=== PATIENT | female | born 2005 | race Caucasian/White ===

== ENCOUNTER 2023-08-07 06:04 | Emergency (ER) | payer OTHER, SELFPAY ==
[2023-08-07] MEDS ORDERED: ONDANSETRON 4 MG/2 ML VIAL ONE (06:33)
[2023-08-07] MEDS ORDERED: NA CHLORIDE 0.9% 1,000 ML ONE (06:34)
[2023-08-07] MEDS ORDERED: MORPHINE 4 MG/ML SYR ONE (06:45)
[2023-08-07] MEDS ORDERED: CEFTRIAXONE 1000 MG/VIAL ONE (06:45)
[2023-08-07 07:10] LABS: Absolute Eosinophils 0.4 K/uL (0-0.5); Absolute Lymphocytes (CBC) 2.7 K/uL (0.7-4.9); Absolute Monocytes 0.6 K/uL (0.1-1.3); Absolute Neutrophil 3.5 K/uL (1.8-8.0); Basophils % 0.6 % (0-1.3); Eosinophils % 5.2 % (0-4.4); Hematocrit 38.6 % (36.0-45.0); Hemoglobin 13.6 g/dL (12.0-15.0); Lymphocytes % 37.4 % (15.3-44.8); MCH 31.2 pg (27.0-35.0); MCHC 35.3 g/dL (32.0-36.0); MCV 88.5 fL (80-100); MPV 8.6 fL (7.6-11.3); Monocytes % 8.2 % (3.3-12.3); Neutrophils % 48.6 % (41.7-73.7); Nucleated Red Blood Cells % 0.1 % (0-0); Platelets 208 thou/uL (152-406); RBC Red Blood Cell Count 4.36 M/uL (3.86-4.86); Red Cell Distribution Width 12.6 % (12.1-15.2)
[2023-08-07 07:14] LABS: Specific Gravity 1.021 (1.005-1.030)
[2023-08-07 07:16] LABS: Specific Gravity 1.021 (1.005-1.030); Sqamous Epithelial <5 /HPF (None Seen); Urine Bacteria >50 /HPF (<20); Urine Bilirubin NEGATIVE (Negative); Urine Blood 3+ (Negative); Urine Clarity Extremely Turbid (Clear); Urine Color Light-Orange (Yellow); Urine Culture Reflex Order REFLEXED; Urine Glucose NEGATIVE (Negative); Urine Ketones TRACE (Negative); Urine Microscopic Reflex YN ORDER UMIC; Urine Mucus Slight /HPF (None Seen); Urine Nitrite 1+ (Negative); Urine Protein 3+ (Negative); Urine RBC >50 /HPF (None Seen); Urine Urobilinogen Normal (Normal); Urine WBC >50 /HPF (<5); Urine pH 6.5 (5.0-7.0)
[2023-08-07 08:11] LABS: Albumin/Globulin Ratio 0.9 (1.1-1.8); Anion Gap 9.6 mEq/L (5.0-15.0); Bilirubin Total 0.5 mg/dL (0.2-1.0); Globulin 3.4 g/dL (2.3-3.5); Potassium 3.6 mEq/L (3.5-5.1); Protein, Total 6.4 g/dL (6.4-8.2)
[2023-08-07] MEDS ORDERED: MORPHINE 2 MG/ML SYR ONE (08:26)
--- NOTE | 2023-08-07 08:36 | RAD REPORT ---
EXAM DESCRIPTION: CTAbdomen Pelvis W Contrast - 08/07/2023 8:14 am CLINICAL HISTORY: ABD PAIN COMPARISON: No comparisons TECHNIQUE: CT of the abdomen and pelvis was performed. All CT scans are performed using dose optimization technique as appropriate and may include automated exposure control or mA/KV adjustment according to patient size. FINDINGS: Lower chest: No acute abnormality. Liver: No acute abnormality or suspicious lesions. Biliary: No biliary ductal dilatation. Stomach: No significant focal abnormality. Duodenum: No significant focal abnormality. Pancreas: No significant abnormality. Spleen: No significant abnormality. Adrenal: No suspicious lesions. Kidney/ureter: No hydronephrosis. No renal calculi. Retroperitoneum: No retroperitoneal adenopathy. Vascular: No aneurysm. Bowel: No significant focal abnormality. Normal appendix. Peritoneum: No ascites or free air. Bladder: Mild circumferential bladder wall thickening. Reproductive: No adnexal masses. IUD. Bones: No acute fracture. Other: n/a IMPRESSION: No acute intra-abdominal or pelvic finding. Mild bladder wall thickening could indicate cystitis. Normal appendix.
--- NOTE | 2023-08-07 08:56 | EDPHYS ---
Physician Documentation [facility] Name: Radha Lea Age: 17 yrs Sex: Female : 2005 Arrival Date: 08/07/2023 Time: 06:04 Bed 20 Private MD: ED Physician Eliu Aragon HPI: 08/06 06:34 This 17 yrs old Female presents to ER via Ambulatory with complaints of danette Abdominal Pain. 06:34 The patient presents with abdominal pain right lower quadrant. Onset: The danette symptoms/episode began/occurred 1 day(s) ago. The patient complains of pain in the right mid back. The pain radiates to the right mid back and right low back. Onset: The symptoms/episode began/occurred 3 day(s) ago. Modifying factors: The symptoms are alleviated by nothing. the symptoms are aggravated by nothing. The patient presents with pain that is acute, with no known mechanism of injury. Associated signs and symptoms: The patient has no apparent associated signs or symptoms. 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 Last tetanus immunization: < 5 years ago Flu vaccine is not up to date. - Social history:: Smoking status: Reported history of juuling and/or vaping. Patient uses alcohol, occasionally. Patient/guardian denies using alcohol. - Family history:: not pertinent. ROS: 06:34 Constitutional: Negative for fever, chills, and weight loss, Eyes: Negative for injury, danette pain, redness, and discharge, ENT: Negative for injury, pain, and discharge, Neck: Negative for injury, pain, and swelling, Cardiovascular: Negative for chest pain, palpitations, and edema, Respiratory: Negative for shortness of breath, cough, wheezing, and pleuritic chest pain, : Negative for injury, bleeding, discharge, and swelling, MS/Extremity: Negative for injury and deformity, Skin: Negative for injury, rash, and discoloration, Neuro: Negative for headache, weakness, numbness, tingling, and seizure, Psych: Negative for depression, anxiety, suicide ideation, homicidal ideation, and hallucinations, Allergy/Immunology: Negative for hives, rash, and allergies, Endocrine: Negative for neck swelling, polydipsia, polyuria, polyphagia, and marked weight changes, Hematologic/Lymphatic: Negative for swollen nodes, abnormal bleeding, and unusual bruising, 06:34 Abdomen/GI: Positive for abdominal pain, of the posterior aspect of right lateral abdomen, anterior aspect of right lateral abdomen and right lower quadrant, Exam: 06:34 Constitutional: This is a well developed, well nourished patient who is awake, alert, danette and in no acute distress. Head/Face: Normocephalic, atraumatic. Eyes: Pupils equal round and reactive to light, extra-ocular motions intact. Lids and lashes normal. Conjunctiva and sclera are non-icteric and not injected. Cornea within normal limits. Periorbital areas with no swelling, redness, or edema. ENT: Nares patent. No nasal discharge, no septal abnormalities noted. Tympanic membranes are normal and external auditory canals are clear. Oropharynx with no redness, swelling, or masses, exudates, or evidence of obstruction, uvula midline. Mucous membranes moist. Neck: Trachea midline, no thyromegaly or masses palpated, and no cervical lymphadenopathy. Supple, full range of motion without nuchal rigidity, or vertebral point tenderness. No Meningismus. Chest/axilla: Normal chest wall appearance and motion. Nontender with no deformity. No lesions are appreciated. Cardiovascular: Regular rate and rhythm with a normal S1 and S2. No gallops, murmurs, or rubs. Normal PMI, no JVD. No pulse deficits. Respiratory: Lungs have equal breath sounds bilaterally, clear to auscultation and percussion. No rales, rhonchi or wheezes noted. No increased work of breathing, no retractions or nasal flaring. Back: No spinal tenderness. No costovertebral tenderness. Full range of motion. Skin: Warm, dry with normal turgor. Normal color with no rashes, no lesions, and no evidence of cellulitis. MS/ Extremity: Pulses equal, no cyanosis. Neurovascular intact. Full, normal range of motion. Neuro: Awake and alert, GCS 15, oriented to person, place, time, and situation. Cranial nerves II-XII grossly intact. Motor strength 5/5 in all extremities. Sensory grossly intact. Cerebellar exam normal. Normal gait. Psych: Awake, alert, with orientation to person, place and time. Behavior, mood, and affect are within normal limits. 06:34 Abdomen/GI: Inspection: abdomen appears normal, Bowel sounds: normal, Palpation: mild abdominal tenderness, in the posterior aspect of right lateral abdomen, anterior aspect of right lateral abdomen and right lower quadrant, Vital Signs: 06:26 BP 127 / 94; Pulse 86; Resp 16; Temp 97.8; Pulse Ox 99% on R/A; Weight 46.72 kg; Height pf1 5 ft. 4 in. ; Pain 8/10; 07:12 BP 109 / 60; Pulse 70; Resp 16 S; Pulse Ox 100% on R/A; kc6 08:32 BP 110 / 70; Pulse 90; Resp 16 S; Pulse Ox 97% on R/A; Pain 6/10; kc6 06:26 Body Mass Index 17.68 (46.72 kg, 162.56 cm) - Percentile 4.2 % pf1 06:26 Pain Scale: Adult pf1 08:32 Pain Scale: Adult kc6 MDM: 06:10 Patient medically screened. danette 06:38 Differential diagnosis: nephrolithiasis, pyelonephritis, UTI, Cholelithiasis danette Cholelithiasis, gastritis, Menorrhagia, non-specific abd pain, Ovarian Torsion. Data reviewed: vital signs, nurses notes, lab test result(s), radiologic studies, CT scan. Consideration of Admission/Observation Escalation of care including admission/observation considered. I considered the following discharge prescriptions or medication management in the emergency department Medications were administered in the Emergency Department. See MAR. Independent interpretation of the following test(s) in the Emergency Department CT Scan: My interpretation is ct abd pelvis ro appy, stone , uti , pyelo. 07:33 ED course: Patient seen and examined by me which was signed out by Dr. Frye on the sp3 assistant casino shift manager. Patient is a 17-year-old female with right lower quadrant and right flank pain. Differential diagnosis includes UTI versus kidney stone versus constipation versus functional abdominal pain and to a much lower likelihood appendicitis or biliary pathology. Workup is pending including labs, UA and CT scan of the abdomen pelvis. Disposition pending workup and patient course. Pain is controlled and she is resting comfortably.. 08:55 ED course: CT demonstrates cystitis and UA demonstrates significant infection. We will sp3 diagnose pyelonephritis and send patient home on appropriate medications. She received Rocephin 1 g IV in the ED already. Follow-up with PCP as needed.. 08/06 06:12 Order name: CBC with Diff; Complete Time: 07:[address] [facility] 08/06 06:12 Order name: CMP; Complete Time: 08:[address] [facility] 08/06 06:12 Order name: Lipase; Complete Time: 08:[address] [facility] 08/06 06:12 Order name: Test, Urine; Complete Time: 07:[address] [facility] 08/06 06:12 Order name: Urinalysis w/ reflexes; Complete Time: 08:[address] [facility] 08/06 06:34 Order name: Urine Culture [facility] 08/06 06:34 Order name: CT Abd/Pelvis - IV Contrast Only; Complete Time: 08:[address] [facility] 08/06 06:12 Order name: IV Saline Lock; Complete Time: 06:[address] [facility] 08/06 06:12 Order name: Labs collected and sent; Complete Time: 06:[address] [facility] 08/06 07:23 Order name: Labs - recollect needed: recollect chemistries / hemolyzed per Jeannie; eb Complete Time: 07:37 Administered Medications: 06:40 Drug: NS 0.9% IV 1000 ml IV at 1 bolus Per protocol; 1000 mL bolus Route: IV; Rate: 1 pf1 bolus; Site: left antecubital; 06:59 Follow up: Response: No adverse reaction; Marked relief of symptoms pf1 06:40 Drug: Ondansetron IVP 4 mg IVP once; over 2 minutes Route: IVP; Site: left antecubital; pf1 06:58 Follow up: Response: No adverse reaction; Marked relief of symptoms pf1 06:50 Drug: morphine IVP or IV 2 mg IVP once over 4 mins Route: IVP; Infused Over: 4 mins; pf1 Site: left antecubital; 06:59 Follow up: Response: No adverse reaction; Marked relief of symptoms; Pain is decreased; pf1 RASS: Alert and Calm (0) 06:50 Drug: Rocephin IV 1 grams IV at per protocol once; Given slow IV push per pharmacy pf1 instructions Route: IV; Rate: per protocol; Site: left antecubital; 06:59 Follow up: Response: No adverse reaction; Marked relief of symptoms; IV Status: pf1 Completed infusion; IV Intake: 10ml 08:29 Drug: morphine IVP or IV 2 mg IVP once over 4 mins Route: IVP; Infused Over: 4 mins; kc6 Site: left antecubital; 09:09 Drug: Ketorolac IVP 30 mg IVP once Route: IVP; Site: left antecubital; kc6 Disposition Summary: 08/07/23 08:56 Discharge Ordered Notes: Location: Home sp3 Condition: Stable sp3 Diagnosis - Pyelonephritis acute sp3 Followup: sp3 - With: Private Physician - When: Upon discharge from the Emergency Department - Reason: Continuance of care Discharge Instructions: - Discharge Summary Sheet sp3 - Pyelonephritis, Adult sp3 Forms: - Work release form eb - Medication Reconciliation Form sp3 - Thank You Letter sp3 - Antibiotic Education sp3 - Prescription Opioid Use sp3 - Patient Portal Instructions sp3 - Leadership Thank You Letter sp3 Prescriptions: - Cipro 500 mg Oral Tablet - take 1 tablet ORAL route every 12 hours for 10 days; 20 tablet; Refills: 0, sp3 Product Selection Permitted Signatures: Dispatcher [employer] EDJoe Jean-Baptiste MD MD cha Botello, Elizabeth eb Patel, Setul, MD MD sp3 Lauren Brand RN RN kc6 Jackie Dotson RN RN pf1 Corrections: (The following items were deleted from the chart) 06:13 06:13 CBC+H.LAB.BRZ ordered. EDMS EDMS 06:13 06:13 COMPREHENSIVE METABOLIC PANEL+C.LAB.BRZ ordered. EDMS EDMS 06:13 06:13 LIPASE+C.LAB.BRZ ordered. EDMS EDMS 06:13 06:13 Test, Urine+UC.LAB.BRZ ordered. EDMS EDMS 06:13 06:13 Urinalysis+U.LAB.BRZ ordered. EDMS EDMS 06:13 06:13 Abdomen Pelvis W Con+CT.RAD.BRZ ordered. EDMS EDMS 06:34 06:34 Urine Culture+BA.LAB.BRZ ordered. EDMS EDMS 07:34 07:33 ED course: Patient seen and examined by me which was signed out by Dr. Frye sp3 on the assistant casino shift manager. Patient is a 17-year-old female with right lower quadrant and right flank pain. Differential diagnosis includes UTI versus kidney stone versus constipation versus functional abdominal pain and to a much lower likelihood appendicitis or biliary pathology. Workup is pending including labs, UA and CT scan of the abdomen pelvis. Disposition pending workup and patient course.. sp3
--- NOTE | 2023-08-07 08:56 | ER ---
Nurse's Notes [facility] Name: Radha Lea Age: 17 yrs Sex: Female : 2005 Arrival Date: 08/07/2023 Time: 06:04 Bed 20 Private MD: Diagnosis: Pyelonephritis acute Presentation: 08/06 06:26 Chief complaint: Patient states: RLQ pain of 8,onset yesterday with burning with pf1 urination, frequency, and urgency,onset 5 days ago. Coronavirus screen: Vaccine status: Patient reports being unvaccinated. Client denies travel out of the [place] in the last 14 days. At this time, the client does not indicate any symptoms associated with coronavirus-19. Ebola Screen: Patient negative for fever greater than or equal to 101.5 degrees Fahrenheit, and additional compatible Ebola Virus Disease symptoms. Initial Sepsis Screen: Does the patient meet any 2 criteria? No. Patient's initial sepsis screen is negative. Does the patient have a suspected source of infection? No. Patient's initial sepsis screen is negative. Risk Assessment: Do you want to hurt yourself or someone else? Patient reports no desire to harm self or others. Onset of symptoms was August 02, 2023. 06:26 Method Of Arrival: Ambulatory pf1 06:26 Acuity: ROZINA 3 pf1 Triage Assessment: 06:29 General: Appears in no apparent distress. comfortable, well groomed, well developed, pf1 Behavior is calm, cooperative, appropriate for age, quiet. Pain: Complains of pain in abdomen. GI: Abdomen is flat, non-distended, Bowel sounds Reports lower abdominal pain. : Reports burning with urination, urgency, urinary frequency. 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 Last tetanus immunization: < 5 years ago Flu vaccine is not up to date. - Social history:: Smoking status: Reported history of juuling and/or vaping. Patient uses alcohol, occasionally. Patient/guardian denies using alcohol. - Family history:: not pertinent. Screenin:[facility] ED Fall Risk Assessment (Adult) History of falling in the last 3 months, pf1 including since admission No falls in past 3 months (0 pts) Confusion or Disorientation No (0 pts) Intoxicated or Sedated No (0 pts) Impaired Gait No (0 pts) Mobility Assist Device Used No (0 pt) Altered Elimination No (0 pt) Score/Fall Risk Level 0 - 2 = Low Risk Oriented to surroundings, Maintained a safe environment, Educated pt \T\ family on fall prevention, incl call for assistance when getting out of bed, Assessed \T\ reinforced patient's understanding of fall precautions, Provided non-skid footwear, Hourly rounding (assess needs \T\ fall precautionary measures) done, Used ambulatory aids as needed (educated on \T\ assisted with), Used gait belt as appropriate. Abuse screen: Denies threats or abuse. Nutritional screening: No deficits noted. Tuberculosis screening: No symptoms or risk factors identified. Assessment: 06:30 General: Appears in no apparent distress. comfortable, well groomed, well developed, pf1 Behavior is calm, cooperative, appropriate for age, quiet. Pain: Complains of pain in abdomen Pain currently is 8 out of 10 on a pain scale. Pain began 1 day ago. Neuro: No deficits noted. Level of Consciousness is awake, alert, obeys commands, Oriented to person, place, time, situation. Cardiovascular: No deficits noted. Capillary refill < 3 seconds Patient's skin is warm and dry. Respiratory: Airway is patent Respiratory effort is even, unlabored, Respiratory pattern is regular, symmetrical, Breath sounds are clear bilaterally. GI: Abdomen is flat, non-distended, Bowel sounds present X 4 quads. Abd is soft and non tender X 4 quads. Reports lower abdominal pain. : Reports burning with urination, urgency, since 5 days urinary frequency. EENT: No deficits noted. No signs and/or symptoms were reported regarding the EENT system. Derm: No deficits noted. No signs and/or symptoms reported regarding the dermatologic system. 07:30 Reassessment: Patient appears in no apparent distress at this time. No changes from kc6 previously documented assessment. Patient and/or family updated on plan of care and expected duration. Pain level reassessed. Patient is alert, oriented x 3, equal unlabored respirations, skin warm/dry/pink. Patient denies pain at this time. Patient states feeling better. Patient states symptoms have improved. 08:30 Reassessment: Patient appears in no apparent distress at this time. No changes from kc6 previously documented assessment. Patient and/or family updated on plan of care and expected duration. Pain level reassessed. Patient is alert, oriented x 3, equal unlabored respirations, skin warm/dry/pink. pt reports increased pain 6/10. Vital Signs: 06:26 BP 127 / 94; Pulse 86; Resp 16; Temp 97.8; Pulse Ox 99% on R/A; Weight 46.72 kg; Height pf1 5 ft. 4 in. ; Pain 8/10; 07:12 BP 109 / 60; Pulse 70; Resp 16 S; Pulse Ox 100% on R/A; kc6 08:32 BP 110 / 70; Pulse 90; Resp 16 S; Pulse Ox 97% on R/A; Pain 6/10; kc6 06:26 Body Mass Index 17.68 (46.72 kg, 162.56 cm) - Percentile 4.2 % pf1 06:26 Pain Scale: Adult pf1 08:32 Pain Scale: Adult kc6 ED Course: 06:09 Patient arrived in ED. gm2 06:10 Joe Frye MD is Attending Physician. [facility] 06:28 Triage completed. pf1 06:29 Arm band placed on right wrist. pf1 06:30 Patient has correct armband on for positive identification. Placed in gown. Bed in low pf1 position. Call light in reach. 06:30 Door closed. Noise minimized. Moved to private room. Warm blanket given. pf1 06:35 No provider procedures requiring assistance completed. Inserted saline lock: 20 gauge pf1 in left antecubital area, using aseptic technique. Blood collected. 06:45 Initial lab(s) drawn, by me, sent to lab. Urine collected: clean catch specimen, pf1 cloudy, Amount Voided: 100mL. 07:00 Warm blanket given. pf1 07:00 Report received from JORDEN Strange. kc6 07:04 Report given to JORDEN Ocampo. pf1 07:06 Attending Physician role handed off by Joe Frye MD sp3 07:06 Eliu Aragon MD is Attending Physician. sp3 08:15 CT Abd/Pelvis - IV Contrast Only In Process Unspecified. EDMS 08:16 Lauren Brand, RN is Primary Nurse. kc6 09:10 IV discontinued, intact, bleeding controlled, No redness/swelling at site. Pressure kc6 dressing applied. Administered Medications: 06:40 Drug: NS 0.9% IV 1000 ml IV at 1 bolus Per protocol; 1000 mL bolus Route: IV; Rate: 1 pf1 bolus; Site: left antecubital; 06:59 Follow up: Response: No adverse reaction; Marked relief of symptoms pf1 06:40 Drug: Ondansetron IVP 4 mg IVP once; over 2 minutes Route: IVP; Site: left antecubital; pf1 06:58 Follow up: Response: No adverse reaction; Marked relief of symptoms pf1 06:50 Drug: morphine IVP or IV 2 mg IVP once over 4 mins Route: IVP; Infused Over: 4 mins; pf1 Site: left antecubital; 06:59 Follow up: Response: No adverse reaction; Marked relief of symptoms; Pain is decreased; pf1 RASS: Alert and Calm (0) 06:50 Drug: Rocephin IV 1 grams IV at per protocol once; Given slow IV push per pharmacy pf1 instructions Route: IV; Rate: per protocol; Site: left antecubital; 06:59 Follow up: Response: No adverse reaction; Marked relief of symptoms; IV Status: pf1 Completed infusion; IV Intake: 10ml 08:29 Drug: morphine IVP or IV 2 mg IVP once over 4 mins Route: IVP; Infused Over: 4 mins; kc6 Site: left antecubital; 09:09 Drug: Ketorolac IVP 30 mg IVP once Route: IVP; Site: left antecubital; kc6 Medication: 09:10 VIS not applicable for this client. kc6 Intake: 06:59 IV: 10ml; Total: 10ml. pf1 Outcome: 08:56 Discharge ordered by . sp3 09:09 Discharged to home ambulatory, with significant other, kc6 09:09 Condition: improved 09:09 Discharge instructions given to patient, Instructed on discharge instructions, follow up and referral plans. medication usage, Demonstrated understanding of instructions, follow-up care, medications, Prescriptions given X 1, 09:10 Patient left the ED. kc6 Signatures: Dispatcher [employer] EDMS Joe Frye MD MD danette Aragon, Setul, MD MD sp3 Lauren Brand RN RN kc6 Jackie Dotson RN RN pf1 Toma Ventura 2 Corrections: (The following items were deleted from the chart) 07:37 07:12 Pulse 70bpm; Resp 16bpm; Spontaneous; Pulse Ox 100% RA; kc6 kc6
[2023-08-07] MEDS ORDERED: KETOROLAC 30 MG/ML INJ ONE (08:57)
[2023-08-07 10:38] VITALS: BP 110/70; TEMP 97.8; O2SAT 97
== END 2023-08-07 09:10 | disposition home or self-care (01) ==
LOC: EDBD 06:04 → ER 06:04
DX: N10 Acute pyelonephritis (principal); Z28.310 Unvaccinated for COVID-19
CPT/HCPCS: 87088; 85025; 81001; 87086; 36415; 81025; 87077; 87186; 83690; 80053; 74177; 96375; 96374; 99284; Q9967; J2270; J2405; J7030; J0696